=== PATIENT | male | born 1960 | race African-American/Black ===

== ENCOUNTER 2017-11-10 22:05 | Emergency (ER) | payer BC, SELFPAY ==
[2017-11-10 22:08] VITALS: BP 141/86; PULSE 68; RESP 18; TEMP 37.1; O2SAT 97; BMI 30.5
--- NOTE | 2017-11-10 22:56 | CT_ITS ---
STUDY: CT ABDOMEN AND PELVIS WITHOUT CONTRAST REASON FOR EXAM: Male, 57 years old. Lower abdominal pain with nausea and vomiting RADIATION DOSAGE (If Supplied By Facility): CTDIvol = ( 10.94 ) mGy, DLP = ( 634.41 ) mGycm TECHNIQUE: Transaxial images were obtained from the dome of the diaphragm to the symphysis pubis without oral contrast, and without intravenous contrast. Sagittal and coronal images were reconstructed. Individualized dose optimization techniques were used for this CT. COMPARISON: None. FINDINGS: Minor atelectasis within the dependent portion of the lungs. The visualized portions of the heart are within normal limits. Normal liver. Normal gallbladder and extrahepatic biliary system. Normal spleen. Normal pancreas. Normal bilateral adrenal glands. No evidence for renal obstruction or ureteral calculus. There are 2 simple cysts in left kidney and one in the right. The stomach is distended as are multiple proximal and mid small bowel loops demonstrating fluid. There is no definitive transition point demonstrated and there is gradual tapering to more normal caliber distally suggesting ileus although low-grade partial small bowel obstruction is not entirely excluded. There are diverticular changes in the sigmoid colon without evidence for acute diverticulitis.. The appendix is well-visualized and upper normal in size. There is no appreciable thickening of the turner or periappendiceal edema.. Mild atherosclerotic changes of the aorta without evidence for aneurysm. Normal inferior vena cava. Normal retroperitoneum. Normal urinary bladder. Normal abdominal wall. Lumbar spine demonstrates mild spondylosis. CT/Abdomen/Pelvis without Cont IMPRESSION: Findings which are most consistent with nonspecific ileus although low-grade distal small bowel obstruction cannot be entirely excluded. Would recommend clinical correlation and follow-up No definitive evidence for acute appendicitis. Mild diverticular disease of the sigmoid colon without evidence for acute diverticulitis Electronically Signed: Greg Aggarwal MD at 23:49 EDT , Service support ,
--- NOTE | 2017-11-10 23:02 | ED.VISSUMM ---
- ER Visit Summary Date of Service: 11/10/17 Chief Complaint: [] Abdominal pain vomiting and diarrhea for for 5 hours History of Present Illness: The patient is a 57 M [] recently flew into the [facility] this morning he indicates he woke with a nonspecific sense he did not feel well, he had dinner and then he had began having sharp stabbing lower abdominal pain with vomiting and diarrhea no fever no cough he has no history of GI elements he has a history of hypertension and hypothyroidism he is taking medications and has been stable Physical Examination: [] His vitals are within normal range she is in no distress head neck chest unremarkable the abdomen there is a vague discomfort to the lower hypogastric region. There is no rebound guarding organomegaly the inspection is unremarkable the backs unremarkable there is no right lower quadrant left lower quadrant pain he indicates the diarrhea has been watery no blood he also vomited clear stomach content upper lower extremities and back are unremarkable Test Results: [] Emergency Department Course and Treatment: [] IV fluids screening labs, the patient's labs are all unremarkable. He is eating and drinking water here he feels much better his abdomen is soft there is no rebound guarding organomegaly, the CT scan shows likely ileus nothing acute although per radiology the early subtle small bowel obstruction not completely ruled out, this would be unlikely given the fact is feeling much better he is eating and drinking here in the department he wants to go home I have explained test results to him Remembers eating a large bag of peanuts on the airplane may have precipitated all the above I have asked him to avoid that type of food stand liquids to soft foods such as yogurts banana soups and follow-up with his family doctor return for change in symptoms he will be given Bentyl as needed referral to [place] on-call physicians is out of town and return for change in symptoms he has had no vomiting or diarrhea since being in the ED Again he is feeling much better and wants to go home Treatment Plan: [] Disposition: [] Home stable Impression: [] Abdominal pain resolved vomiting and diarrhea resolved This note was generated with Neul dictation software. It may contain incorrect words, spelling, and punctuation that were not noted in review of the chart prior to signing ED Disposition - Plan for ED Patient: Chief Complaint: Abd Pain Referrals: Killian Goodrich MD [STAFF PHYSICIAN] -
[2017-11-10] MEDS: morphine 8 MG/ML Syringe IV (23:09)
[2017-11-10] MEDS: Ondansetron 4 MG/2 ML Vial IV (23:09)
[2017-11-10 23:19] LABS: Absolute Lymphocyte Count 1.17 X10^3/ul (0.83-4.51); Absolute Neutrophil Count 5.4 X10^3/uL (2.0-7.7); Basophil# 0.01 X10^3/uL; Basophil% 0.1 % (0-1); Eosinophil# 0.04 X10^3/uL; Eosinophils% 0.6 % (0-5); Hematocrit 44.4 % (40-54); Hemoglobin 14.8 g/dl (13.0-16.5); Lymphocyte # 1.17 X10^3/ul (4.0); Lymphocyte % 16.8 % (19-41); Mean Corp Hgb Conc 33.3 g/gl (32-36); Mean Corpuscular Hgb 29.1 pg (27.0-32.0); Mean Corpuscular Volume 87.4 fL (80-94); Mean Platelet Vol. 10.3 fl (6.2-12.0); Monocyte# 0.36 X10^3/uL; Monocyte% 5.2 % (0-10); Neutrophil # 5.38 X10^3/uL (2.7-7.7); Neutrophil % 77.2 % (47-70); Platelet Count 154 K/mm3 (150-450); RBC Distribution Width CV 13.6 % (11.6-14.6); RBC Distribution Width SD 43.7 fl (35.1-43.9); Red Blood Count 5.08 M/mm3 (4.6-6.2)
[2017-11-10 23:24] LABS: POSITIVE COUNT NO; POSITIVE DIFFERENTIAL NO; POSITIVE MORPHOLOGY NO
[2017-11-10 23:32] LABS: AST(SGOT) 23 U/L (15-37); Alanine Aminotransfer ALT/SGPT 31 U/L (16-61); Albumin, Serum 3.8 g/dL (3.2-5.0); Alkaline Phosphatase 65 U/L (45-117); Anion Gap 4 (5-15); BUN 16 mg/dL (7-18); BUN/Creat Ratio 15.5 RATIO (10-20); Bilirubin, Direct 0.08 mg/dL (0.00-0.30); Calcium,Total 8.6 mg/dL (8.5-10.1); Chloride 104 mmol/L (98-107); Creatinine, Serum 1.03 mg/dL (0.70-1.30); EST Glomerular Filtration Rate 79 mL/min (>60); Est Glom Filt Rate - Afr Amer 95 mL/min (>60); Estimated Creatinine Clearance 88.35 ml/min; Globulin 3.7 g/dL (2.2-4.2); Glucose 106 mg/dL (74-106); Lipase 93 U/L (73-393); Potassium 3.8 mmol/L (3.5-5.1); Protein, Total 7.5 g/dL (6.4-8.2); Sodium Level 139 mmol/L (136-145)
--- NOTE | 2017-11-11 00:49 | ED.DEP ---
ED Disposition - Plan for ED Patient: Chief Complaint: Abd Pain Instructions: ED Abdominal Pain Unkn Cause Prescriptions: Dicyclomine HCl [Bentyl] 20 mg PO TIDAC #20 cap Referrals: Killian Goodrich MD [STAFF PHYSICIAN] -
[2017-11-11 01:24] LABS: Red Blood Cells-Urine 0 SEEN /hpf (0-5)
[2017-11-11 01:30] LABS: Color, Urine Yellow (Yellow); Glucose, Dipstick Normal (Normal); Ketone-Dipstick Negative (Negative); Leukocyte Esterase-Dipstick 100 /ul (Negative); Nitrite-Dipstick Negative (Negative); Occult Blood-Urine Negative /ul (Negative); Protein-Dipstick 15 mg/dl (Negative); Urine Bilirubin Dipstick Negative (Negative); Urine Clarity Sl. Cloudy (Clear); Urine Urobilinogen 1 mg/dl (Normal)
[2017-11-11 01:37] LABS: Bacteria RARE /hpf (None Seen); Mucous, Urine RARE /hpf (<or=2+); Squamous Epithelial Cells - UA 0-5 SEEN /hpf (0-5); White Blood Cells 5-10 SEEN /hpf (0-5)
[2017-11-11 01:55] VITALS: BP 120/87; PULSE 80; RESP 18; O2SAT 96
== END 2017-11-11 01:56 | disposition home or self-care (01) ==
LOC: ED 23:44
PROVIDERS: Emergency Provider Emergency Medicine
DX: R10.30 Lower abdominal pain, unspecified (principal); R11.2 Nausea with vomiting, unspecified; R19.7 Diarrhea, unspecified; I10 Essential (primary) hypertension; E03.9 Hypothyroidism, unspecified; Z79.899 Other long term (current) drug therapy
CPT/HCPCS: 74176; 80048; 80076; 81001; 83690; 85025; 96374; 96375; 99284; J7030; A4216; J2405

== ENCOUNTER → 2022-07-07 | Outpatient (CLI) | payer MEDICAID, SELFPAY ==
[2022-07-07 16:40] LABS: Absolute Lymphocyte Count 1.99 X10^3/uL (0.83-4.51); Basophil# 0.02 X10^3/uL; Basophil% 0.4 % (0-1); Eosinophils% 1.8 % (0-5); Hematocrit 42.6 % (40-54); Hemoglobin 14.2 g/dL (13.0-16.5); Lymphocyte # 1.99 X10^3/ul (0.83-4.51); Lymphocyte % 35.3 % (19-41); Mean Corp Hgb Conc 33.3 g/dL (32-36); Mean Corpuscular Hgb 29.1 pg (27.0-32.0); Mean Corpuscular Volume 87.3 fL (80-94); Mean Platelet Vol. 10.7 fl (6.2-12.0); Monocyte# 0.55 X10^3/uL; Monocyte% 9.8 % (0-10); NRBC Flagged by Analyzer 0 % (0-5); Neutrophil # 2.97 X10^3/uL (2.7-7.7); Neutrophil % 52.5 % (47-70); Platelet Count 168 K/mm3 (150-450); RBC Distribution Width SD 44.6 fl (35.1-43.9); Red Blood Count 4.88 M/mm3 (4.6-6.2); White Blood Count 5.6 K/mm3 (4.4-11.0)
[2022-07-07 17:08] LABS: ALB/GLOB Ratio 1.1 RATIO (0.9-2.4); AST(SGOT) 18 U/L (15-37); Alanine Aminotransfer ALT/SGPT 31 U/L (16-61); Albumin, Serum 3.8 g/dL (3.2-5.0); Alkaline Phosphatase 68 U/L (45-117); Anion Gap 6 (5-15); BUN 11 mg/dL (7-18); BUN/Creat Ratio 10.6 RATIO (10-20); Chloride 103 mmol/L (98-107); Cholesterol 245 mg/dL (200); Creatinine, Serum 1.04 mg/dL (0.70-1.30); EST Glomerular Filtration Rate 77 mL/min (>60); Est Glom Filt Rate - Afr Amer 93 mL/min (>60); Globulin 3.5 g/dL (2.2-4.2); Glucose 86 mg/dL (74-106); High Density Lipoprotein 49 mg/dL; Potassium 3.8 mmol/L (3.5-5.1); Protein, Total 7.3 g/dL (6.4-8.2); Sodium Level 139 mmol/L (136-145); Triglycerides 131 mg/dL; Very Low Density Lipoprotein 26 mg/dL (5-40)
== END | disposition home or self-care (01) ==
LOC: BIMLAB 15:24
PROVIDERS: PCP Internal Medicine; Referring Provider Internal Medicine; Visit Provider Internal Medicine
DX: I10 Essential (primary) hypertension (principal); E78.2 Mixed hyperlipidemia; E03.9 Hypothyroidism, unspecified
CPT/HCPCS: 36415; 80053; 80061; 84443; 85025

== ENCOUNTER 2022-09-15 11:34 | Inpatient (IN) | payer MEDICAID, SELFPAY ==
[2022-09-15] VITALS (44 sets, daily range): BP systolic 149–190; BP diastolic 72–116; PULSE 53–67; RESP 14–20; TEMP 36.3–36.9; O2SAT 96–100; BMI 34.4; BMI 33.4
--- NOTE | 2022-09-15 11:42 | NURSING ---
STROKE TEAM CALLED
--- NOTE | 2022-09-15 11:44 | CT_ITS ---
STUDY: CT HEAD STROKE PROTOCOL W/O CONTRAST INJECTION REASON FOR EXAM: Male, 62 years old. Neuro deficit, acute, stroke suspected RADIATION DOSAGE (If Supplied By Facility): CTDIvol = ( 44.99 ) mGy, DLP = ( 846.73 ) mGycm TECHNIQUE: Transaxial CT imaging of the brain was performed without administration of intravenous contrast material. Individualized dose optimization techniques were used for this CT. COMPARISON: No relevant priors. FINDINGS: Normal soft tissue structures. Normal calvarium. Normal size ventricles and extra-axial spaces for the patient''s age. Normal white matter tracts of the cerebral hemispheres. Normal basal ganglia and thalami. Normal brainstem. Normal cerebellum. There is no intracranial hemorrhage. There are no findings of an acute ischemic infarction. Atherosclerotic calcification of the cavernous portions of the internal carotid arteries bilaterally. Mucosal thickening of the right maxillary sinus ASPECT score: 10 CT/STROKE Brain/Head without Cont IMPRESSION: Normal unenhanced CT scan of the brain. Mucosal thickening of the right maxillary sinus. N.B. : The above Results were Read Back by Hammad Lopez MD to Mey Martin and understanding confirmed on 09/15/2022 11:59:07 (ET). Electronically Signed: Hammad Lopez MD at 12:00 EST ,
--- NOTE | 2022-09-15 11:44 | EKG12_ITS ---
Test Reason : POSS STROKE Blood Pressure : / mmHG Vent. Rate : 054 BPM Atrial Rate : 054 BPM P-R Int : 162 ms QRS Dur : 084 ms QT Int : 392 ms P-R-T Axes : 000 195 143 degrees QTc Int : 371 ms Sinus bradycardia Right superior axis deviation Nonspecific ST and T wave abnormality Abnormal ECG Confirmed by BERONICA ALVAREZ, SARA ([id number]), manuscript editor GRUPO CARREON ([id number]) on 09/17/2022 1:02:53 PM Referred By: Confirmed By:SARA LOCO MD
--- NOTE | 2022-09-15 11:44 | NURSING ---
1143 STROKE ALERT CALLED
--- NOTE | 2022-09-15 11:45 | EDS_ITS ---
HPI History of Present Illness Chief Complaint: Stroke Alert Informant: patient Onset/Context/Timing Onset: Today Narrative Narrative: Patient presents to triage with complaints of bilateral leg and right arm weakne ss. He states he went to work this morning. At 7:30 AM he noted bilateral leg weakness and right arm weakness. Family at bedside states his speech sounds like he is tired but is not particularly slurred. On testing patient has right- sided weakness and stroke alert is initiated from triage. [facility] Medical History Acquired hypothyroidism Arthritis Essential hypertension Mixed hyperlipidemia Neuropathy Home Medications levothyroxine 150 mcg tablet 150 mcg PO DAILY #90 tabs 07/06/22 [Rx Last Taken Unknown] lisinopril 20 mg-hydrochlorothiazide 25 mg tablet 1 tab PO DAILY #90 tabs 07/06/22 [Rx Last Taken Unknown] meloxicam 15 mg tablet 15 mg PO DAILY #90 tabs 07/06/22 [Rx Last Taken Unknown] albuterol sulfate 90 mcg/actuation aerosol inhaler 2 puff inhalation Q4H PRN PRN Shortness Of Breath 09/15/22 [History Last Taken Unknown] amoxicillin 875 mg-potassium clavulanate 125 mg tablet 1 tab PO BID 09/15/22 [History Last Taken Unknown] aspirin 81 mg tablet,delayed release 81 mg PO DAILY 09/15/22 [History Last Taken Unknown] azithromycin 250 mg tablet 500 mg PO DAILY 09/15/22 [History Last Taken Unknown] prednisone 20 mg tablet 60 mg PO DAILY 09/15/22 [History Last Taken Unknown] Allergy/AdvReac Type Severity Reaction Status Date / Time hydromorphone HCl AdvReac Shortness Verified 09/15/22 11:35 [From Dilaudid] of breath sildenafil citrate AdvReac Other Verified 09/15/22 11:35 [From Viagra] tramadol HCl [From Ultram] AdvReac Nausea Verified 09/15/22 11:35 Family History Mother Breast cancer Surgical History H/O thyroidectomy History of total right knee replacement Social History household members: spouse housing: house current occupational status: employed current occupation: [employer] sexually active: Yes Smoking Status: Current every day smoker tobacco type: cigarettes Electronic Cigarette Use: not used quit status: considering quitting alcohol intake: current alcohol intake frequency: a few times a month details: 12pk on weekend substance use type: does not use what type of physical activity do you participate in: none seatbelt use: always do you feel safe at home: Yes ROS ROS ED Constitutional Constitutional ED: Denies chills or fever(s) Eyes Eyes: Denies change in vision or discharge from eye(s) ENT ENT ED: Denies discharge from eye(s), rhinorrhea or sore throat Cardiovascular Cardiovascular: Denies chest pain or palpitations Respiratory/Chest Respiratory/Chest: Reports cough; Denies dyspnea Gastrointestinal Gastrointestinal: Denies abdominal pain, diarrhea, nausea or vomiting Genitourinary Genitourinary ED: Denies dysuria Musculoskeletal Musculoskeletal: Denies back pain or extremity pain Integumentary Denies Abrasions or rash Neurologic Neurologic: Reports weakness; Denies headache(s) Psychiatric Psychiatric: Denies anxiety or depression Endocrine Endocrinology: Denies polydipsia or polyuria Allergic/Immunologic Allergic/Immunologic ED: Denies lip swelling or urticaria EXAM Physical Exam Const Vital Signs: 09/15/22 11:35 09/15/22 11:56 09/15/22 12:07 Temperature 97.8 F Temperature Source Temporal Pulse Rate 62 60 56 L Respiratory Rate 18 15 16 Blood Pressure 190/92 H 167/90 H 175/93 H Blood Pressure Mean 124 115 120 Blood Pressure Source Pulse Ox 100 100 100 Oxygen Delivery Method Room Air Room Air Room Air 09/15/22 12:08 09/15/22 12:22 09/15/22 12:27 Temperature Temperature Source Pulse Rate 55 L Respiratory Rate 16 Blood Pressure 159/97 H 159/97 H Blood Pressure Mean 117 Blood Pressure Source Pulse Ox 100 98 Oxygen Delivery Method Room Air Room Air 09/15/22 12:25 09/15/22 12:40 09/15/22 12:55 Temperature Temperature Source Pulse Rate 58 L 53 L 56 L Respiratory Rate 16 16 16 Blood Pressure 159/97 H 162/77 H 177/91 H Blood Pressure Mean 117 105 119 Blood Pressure Source Monitor Monitor Pulse Ox 100 100 99 Oxygen Delivery Method Room Air Room Air Room Air 09/15/22 13:10 09/15/22 11:58 09/15/22 12:01 Temperature Temperature Source Pulse Rate 58 L 60 Respiratory Rate 15 16 Blood Pressure 187/114 H 167/90 H 175/93 H Blood Pressure Mean 138 114 117 Blood Pressure Source Monitor Pulse Ox 100 100 Oxygen Delivery Method 09/15/22 12:16 09/15/22 12:20 09/15/22 12:31 Temperature Temperature Source Pulse Rate 60 56 L Respiratory Rate 18 14 Blood Pressure 178/107 H 159/97 H 174/85 H Blood Pressure Mean 127 108 112 Blood Pressure Source Pulse Ox 100 Oxygen Delivery Method 09/15/22 12:46 09/15/22 13:01 09/15/22 13:15 Temperature Temperature Source Pulse Rate 55 L 54 L 53 L Respiratory Rate 16 15 15 Blood Pressure 162/77 H 186/94 H 177/91 H Blood Pressure Mean 104 123 118 Blood Pressure Source Pulse Ox 100 100 100 Oxygen Delivery Method 09/15/22 13:25 Temperature Temperature Source Pulse Rate Respiratory Rate Blood Pressure 164/116 H Blood Pressure Mean 132 Blood Pressure Source Monitor Pulse Ox Oxygen Delivery Method Positive well nourished and well developed General Appearance ED: well developed HEENT Reports normocephalic and head/scalp atraumatic Eyes PERRL and EOMs intact bilaterally Neck supple Chest Wall inspection of chest normal and palpation of chest normal Resp normal respiratory effort and clear to auscultation bilaterally Cardio regular rate and regular rhythm GI normal to inspection, nondistended, normoactive bowel sounds Palpation: soft Extremity normal to inspection Neuro oriented x3 Neuro Narrative: See NIH stroke score. Sensorium / Orientation: alert Psych mental status grossly normal Skin no rashes or lesions noted NIHSS NIHSS Initial: 1a Level of Consciousness: 0 1b LOC Questions (Score 2 if aphasic/stupor): 0 1c LOC Commands (Only score 1st attempt): 0 2 Best Gaze (If aphasic, use reflexive mvmts.): 0 3 Visual: 0 4 Facial Palsy: 0 5 Motor Arm Right (UN = amputation/fusion): 1 5 Motor Arm Left: 0 6 Motor Leg Right: 1 6 Motor Leg Left: 0 7 Limb ataxia (Only + if out of proportion): 1 8 Sensory (Aphasia/stupor=0 or 1, coma=2): 1 9 Best Language: 0 10 Dysarthria (mute, coma=2, intubated=UN): 1 11 Extinction and Inattention (only scored if +): 0 Total Score: 5 MDM MDM MDM Narrative Medical decision making narrative: Stroke alert called at the time of my evaluation in triage. Patient sent meetly to CT for CTA noncontrast as well as CTA of the head and neck. Lab work obtained to evaluate for leukocytosis, anemia, electrolyte derangement. Lab Data Attestation: I reviewed the patient's lab results. Labs: Laboratory Results - last 24 hr 09/15/22 09/15/22 09/15/22 11:44 11:50 11:50 WBC 16.6 H RBC 5.20 Hgb 14.7 Hct 44.8 MCV 86.2 MCH 28.3 MCHC 32.8 RDW Std Deviation 42.8 RDW Coeff of Brittany 13.6 Plt Count 221 MPV 10.2 Immature Gran % (Auto) 1.000 H Neut % (Auto) 87.5 H Lymph % (Auto) 7.2 L [place] % (Auto) 4.2 Eos % (Auto) 0.0 Baso % (Auto) 0.1 Absolute Neuts (auto) 14.5 H Absolute Lymphs (auto) 1.20 Nucleated RBC % 0 PT 13.2 INR 1.0 APTT 27.4 Sodium Potassium Chloride Carbon Dioxide Anion Gap BUN Creatinine Estim Creat Clear Calc Est GFR (MDRD) Af Amer Est GFR (MDRD) Non-Af BUN/Creatinine Ratio Glucose Calcium Troponin I High Sens POC Glucose 168 H 09/15/22 11:50 WBC RBC Hgb Hct MCV MCH MCHC RDW Std Deviation RDW Coeff of Brittany Plt Count MPV Immature Gran % (Auto) Neut % (Auto) Lymph % (Auto) [place] % (Auto) Eos % (Auto) Baso % (Auto) Absolute Neuts (auto) Absolute Lymphs (auto) Nucleated RBC % PT INR APTT Sodium 137 Potassium 3.7 Chloride 100 Carbon Dioxide 28.0 Anion Gap 9 BUN 19 H Creatinine 1.05 Estim Creat Clear Calc 79.04 Est GFR (MDRD) Af Amer 92 Est GFR (MDRD) Non-Af 76 BUN/Creatinine Ratio 18.1 Glucose 147 H Calcium 9.6 Troponin I High Sens 17 POC Glucose Radiography Diagnostic Testing: Clinical Impression(s) from Imaging Studies Brain CT 09/15/22 11:44 IMPRESSION: Normal unenhanced CT scan of the brain. Mucosal thickening of the right maxillary sinus. N.B. : The above Results were Read Back by Hammad Lopez MD to Mey Martin and understanding confirmed on 09/15/2022 11:59:07 (ET). Electronically Signed: Hammad Lopez MD at 12:00 EST , ADDENDUM: 09/15/22 1207 IMPRESSION: Normal unenhanced CT scan of the brain. Mucosal thickening of the right maxillary sinus. N.B. : The above Results were Read Back by Hammad Lopez MD to Mey Martin and understanding confirmed on 09/15/2022 11:59:07 (ET). Electronically Signed: Hammad Lopez MD at 12:00 EST , Head/Neck CTA 09/15/22 11:52 IMPRESSION: Normal CTA Head and neck with contrast. N.B. : The above Results were Read Back by Jorge Luis Oreilly MD to Mey Martin MD, and understanding confirmed on 09/15/2022 12:15:12 (ET). Electronically Signed: Jorge Luis Oreilly MD at 12:17 EST , ADDENDUM: 09/15/22 1223 IMPRESSION: Normal CTA Head and neck with contrast. N.B. : The above Results were Read Back by Jorge Luis Oreilly MD to Mey Martin MD, and understanding confirmed on 09/15/2022 12:15:12 (ET). Electronically Signed: Jorge Luis Oreilly MD at 12:17 EST , Chest X-Ray 09/15/22 12:45 IMPRESSION: No interval change and no acute or active cardiopulmonary disease. Electronically Signed: Dipak Villar, at 13:02 EST , EKG Initial EKG: Attestation: I personally reviewed and interpreted this EKG as follows: Interpretation: Sinus Bradycardia (Sinus bradycardia 54 bpm. No acute ischemia.) Treatment and Re-Evaluation Narrative: CT scan of the head reveals no acute evidence of stroke. There is mucosal thickening of the right maxillary sinus. CTA of the head and neck reveals no filling defect. Chest x-ray per my interpretation reveals no focal infiltrate. Radiology interpretation is reviewed. CBC reveals a white count of 16.6 with 87% neutrophils. It is noted that the patient is currently on prednisone for pneumonia. Coags are unremarkable. Chemistry studies reveal no significant abnormalities. Troponin is normal at 17. Neurologist from [facility] in to evaluate the patient. Although the patient was at 4 hours and 45 minutes after onset of symptoms, she felt that TNK was still a possibility as it could be given quickly. After she discussed the risks and benefits with the patient and spouse at bedside they did agree. Tenecteplase was ordered and given. On repeat evaluation at this time patient is resting comfortably. I will speak with hospitalist regarding admission. Discharge Plan Triage Chief Complaint: Stroke Alert ED Provider: Mey Martin Dx/Rx/DC Orders Clinical Impression: Acute CVA (cerebrovascular accident) Prescriptions: No Action levothyroxine 150 mcg tablet 150 mcg PO DAILY Qty: 90 0RF lisinopril-hydrochlorothiazide 20-25 mg tablet 1 tab PO DAILY Qty: 90 0RF meloxicam 15 mg tablet 15 mg PO DAILY Qty: 90 0RF azithromycin 250 mg tablet 500 mg PO DAILY prednisone 20 mg tablet 60 mg PO DAILY aspirin [Aspir-81] 81 mg Tablet,Delayed Release (Dr/Ec) 81 mg PO DAILY albuterol sulfate 90 mcg/actuation HFA aerosol inhaler 2 puff INHALATION Q4H PRN PRN (Reason: Shortness Of Breath) amoxicillin-pot clavulanate 875-125 mg tablet 1 tab PO BID Primary Care Provider: Donna Martinez Referrals: Donna Martinez MD [Primary Care Provider] - Disposition Disposition: Acute Care [facility]
--- NOTE | 2022-09-15 11:50 | CM.ED ---
Social Work Note Referral Source: Stroke Alert Referral Reason: Emotional Support SW responded to stroke alert and introduced herself as well as role as [facility] Senior Technical Trainer. Patient's was agreeable to speak with SW and briefly reviewed symptoms prior to patient's arrival. Emotional support provided. Patient's states she will contact her mother at a later time and declined SW contacting anyone for her. SW remains available if other needs arise. Carolina Alejandro PROGRAM ARRANGER, [place]
--- NOTE | 2022-09-15 11:52 | CT_ITS ---
STUDY: CTA HEAD AND NECK WITH CONTRAST REASON FOR EXAM: Male, 62 years old. Mental status change, possible CVA RADIATION DOSAGE (If Supplied By Facility): CTDIvol = ( 22.56 ) mGy, DLP = ( 843.71 ) mGycm TECHNIQUE: CT angiography was performed with a multi-detector CT scanner. Data acquisition was obtained from the skull base through the vertex following intravenous administration of IV 100mL [id number]-[id number]. MIP images were reconstructed from the axial data set. Post-processing of the angiographic images was performed, with multiplanar reformation and 3D reconstruction. Individualized dose optimization techniques were used for this CT. COMPARISON: No relevant priors. FINDINGS: Normal bilateral petrous carotid arteries. Normal right cavernous carotid artery with a normal supraclinoid bifurcation. Normal left cavernous carotid artery with a normal supraclinoid bifurcation. Normal right A1 segments of the anterior cerebral artery. Normal left A1 segments of the anterior cerebral artery. Normal intact anterior communicating artery (ACOM). Normal bilateral A2 segments of the anterior cerebral arteries. Normal right M1 and M2 segments of the middle cerebral arteries, with a normal M1 bifurcation. Normal left M1 and M2 segments of the middle cerebral arteries, with a normal M1 bifurcation. Normal right posterior communicating artery (PCOM). Normal left posterior communicating artery (PCOM). Normal bilateral vertebral arteries. Normal basilar artery with a normal basilar bifurcation. The visualized bilateral superior cerebellar (SCA) arteries are normal. Normal bilateral P1, P2 and visualized P3 segments of the posterior cerebral arteries. There is no demonstrated aneurysm of the [place]. There is no demonstrated abnormality of the visualized brain. AORTIC ARCH: Normal visualized aortic arch. Normal origins of the brachiocephalic, left common carotid, and left subclavian arteries. RIGHT CAROTID ARTERIES: Normal right common carotid artery (CCA). Normal right common carotid bulb. Normal origin of the right internal carotid (ICA) artery without a hemodynamically significant stenosis. Normal visualized cervical portion of the right internal carotid artery. Normal origin of the right external carotid artery (ECA). LEFT CAROTID ARTERIES: Normal left common carotid artery (CCA). Normal left common carotid bulb. Normal origin of the left internal carotid (ICA) artery without a hemodynamically significant stenosis. Normal visualized cervical portion of the left internal carotid artery. Normal origin of the left external carotid artery (ECA). VERTEBRAL ARTERIES: Normal bilateral vertebral arteries. Soft tissue windows show no suspicious enhancing lesion, no airway narrowing or deviation. Lung apices are clear. Normal-appearing thyroid. Minimal paranasal sinusitis noted. CT/STROKE CTA Head AND Neck W/Con IMPRESSION: Normal CTA Head and neck with contrast. N.B. : The above Results were Read Back by Jorge Luis Oreilly MD to Mey Martin MD, and understanding confirmed on 09/15/2022 12:15:12 (ET). Electronically Signed: Jorge Luis Oreilly MD at 12:17 EST ,
[2022-09-15 11:56] LABS: Absolute Neutrophil Count 14.5 X10^3/uL (2.0-7.7); Basophil# 0.02 X10^3/uL; Basophil% 0.1 % (0-1); Hematocrit 44.8 % (40-54); Hemoglobin 14.7 g/dL (13.0-16.5); Lymphocyte % 7.2 % (19-41); Mean Corp Hgb Conc 32.8 g/dL (32-36); Mean Corpuscular Hgb 28.3 pg (27.0-32.0); Mean Corpuscular Volume 86.2 fL (80-94); Mean Platelet Vol. 10.2 fl (6.2-12.0); Monocyte% 4.2 % (0-10); NRBC Flagged by Analyzer 0 % (0-5); Neutrophil # 14.54 X10^3/uL (2.7-7.7); Neutrophil % 87.5 % (47-70); Platelet Count 221 K/mm3 (150-450); RBC Distribution Width CV 13.6 % (11.6-14.6); RBC Distribution Width SD 42.8 fl (35.1-43.9); White Blood Count 16.6 K/mm3 (4.4-11.0)
[2022-09-15 12:06] LABS: Bedside Glucose 168 mg/dL (74-106)
[2022-09-15 12:09] LABS: Prothrombin Time (Protime)PT. 13.2 SECONDS (11.7-14.9)
[2022-09-15 12:10] LABS: Partial Thromboplast Time 27.4 Seconds (24.1-36.2)
[2022-09-15 12:13] LABS: Anion Gap 9 (5-15); BUN 19 mg/dL (7-18); BUN/Creat Ratio 18.1 RATIO (10-20); Calcium,Total 9.6 mg/dL (8.5-10.1); Chloride 100 mmol/L (98-107); Creatinine, Serum 1.05 mg/dL (0.70-1.30); EST Glomerular Filtration Rate 76 mL/min (>60); Est Glom Filt Rate - Afr Amer 92 mL/min (>60); Estimated Creatinine Clearance 79.04 ml/min; Glucose 147 mg/dL (74-106); Potassium 3.7 mmol/L (3.5-5.1); Sodium Level 137 mmol/L (136-145); Troponin-I HS 17 pg/mL (3.0-78.0)
[2022-09-15] MEDS: Tenecteplase 25 MG in Syringe 1 EACH 3600 MG IV (12:27)
[2022-09-15] MEDS: 0.9% Normal Saline 1,000 ML 100 ML IV (12:30)
--- NOTE | 2022-09-15 12:45 | RAD_ITS ---
STUDY: X-RAY CHEST REASON FOR EXAM: Male, 62 years old. Acute stroke suspected. TECHNIQUE: Single frontal view of the chest. COMPARISON: June 2013. FINDINGS: The lungs are clear and expanded. There is no demonstrated pleural abnormality. Normal size heart. Normal mediastinum and yuly. Normal visualized pulmonary arteries. Normal visualized aortic arch and descending thoracic aorta. Normal visualized thoracic spine. Normal visualized ribs, clavicles, and shoulders. There is no demonstrated abnormality of the visualized soft tissue structures of the upper abdomen. RAD/Chest 1 View IMPRESSION: No interval change and no acute or active cardiopulmonary disease. Electronically Signed: Dipak Villar, at 13:02 EST ,
[2022-09-15] MEDS: Labetalol (Prefilled) 20 MG/4 ML IV (13:41)
--- NOTE | 2022-09-15 13:48 | NURSING ---
ICU JOCELYN CVA
--- NOTE | 2022-09-15 14:09 | NURSING ---
ICU 4
--- NOTE | 2022-09-15 14:46 | HP.PCM.HOS_ITS ---
[facility] - General General Date of Admission: 09/15/22 Date of Service: 09/15/22 Chief Complaint: Sudden onset of right-sided weakness and facial droop at 7:30 AM. HPI Narrative NIKIA LOPEZ, is a 62 M relatively healthy gentleman with history of hypertension was brought to ED for sudden onset of right-sided weakness that is started at 7:30 AM. Patient stated he woke up normal and went to work but while walking in hallway to bathroom he felt sudden wobbling and his right leg felt like froze. He feels sudden weakness, wobbly and leaning towards the right side. Stroke alert was called and patient was brought to ED. In ED, vitals shows BP 190/92, respiratory 18, heart rate 62, no hypoxia or tachypnea. NIH stroke calculated 5. CT brain shows normal unenhanced brain. [facility] telestroke consulted. [facility] neurologist recommended tenecteplase and patient was given in the ED. Patient further admitted in ICU. In ED, patient does not feel abnormal speech or language deficit or dysarthria. No loss of visual acuity or field of vision. No dysphagia. Patient never had a stroke or IN or heart attack. Denies history of diabetes mellitus. He smokes 1 pack cigarettes since age of 15. Family history: Patient denies history of IN/cardiac disease or stroke in first- degree family today. Her mother had breast cancer. [facility] Medical History Acquired hypothyroidism Arthritis Essential hypertension Mixed hyperlipidemia Neuropathy Home Medications levothyroxine 150 mcg tablet 150 mcg PO DAILY #90 tabs 07/06/22 [Rx Last Taken 09/15/22] lisinopril 20 mg-hydrochlorothiazide 25 mg tablet 1 tab PO DAILY #90 tabs 07/06/22 [Rx Last Taken 09/15/22] meloxicam 15 mg tablet 15 mg PO DAILY #90 tabs 07/06/22 [Rx Last Taken 09/15/22] albuterol sulfate 90 mcg/actuation aerosol inhaler 2 puff inhalation Q4H PRN PRN Shortness Of Breath 09/15/22 [History Last Taken 09/15/22] amoxicillin 875 mg-potassium clavulanate 125 mg tablet 1 tab PO BID 09/15/22 [History Last Taken 09/15/22] aspirin 81 mg tablet,delayed release 81 mg PO DAILY 09/15/22 [History Last Taken 09/15/22] azithromycin 250 mg tablet 250 mg PO DAILY 09/15/22 [History Last Taken 09/14/22] prednisone 20 mg tablet 60 mg PO DAILY 09/15/22 [History Last Taken 09/14/22] Allergy/AdvReac Type Severity Reaction Status Date / Time hydromorphone HCl AdvReac Shortness Verified 09/15/22 11:35 [From Dilaudid] of breath sildenafil citrate AdvReac Other Verified 09/15/22 11:35 [From Viagra] tramadol HCl [From Ultram] AdvReac Nausea Verified 09/15/22 11:35 Family History Mother Breast cancer Surgical History H/O thyroidectomy History of total right knee replacement Social History household members: spouse housing: house current occupational status: employed current occupation: [employer] sexually active: Yes Smoking Status: Current every day smoker tobacco type: cigarettes Electronic Cigarette Use: not used quit status: considering quitting alcohol intake: current alcohol intake frequency: a few times a month details: 12pk on weekend substance use type: does not use what type of physical activity do you participate in: none seatbelt use: always do you feel safe at home: Yes ROS ROS Narrative Constitutional: Reports fatigue and weakness and tiredness. No fever HEENT: Reports systems reviewed and no addt'l complaints, except as documented Respiratory/Chest: Denies chest pain, shortness of breath at rest or with exertion Gastrointestinal: Denies coffee ground emesis, hematemesis or vomiting Genitourinary: Denies burning urination or new urinary tract symptoms Musculoskeletal: Right-sided weakness as described in HPI Neurologic: No seizure. Rest as described in HPI skin: No ulcer. No rash Endocrinology: Denies diabetes mellitus history. Reports systems reviewed and no addt'l complaints, except as documented Hematologic/Lymphatic: Reports systems reviewed and no addt'l complaints, except as documented Rest 14 ROS are negative except as mentioned in HPI Vital Signs Vital Signs Vital Signs: 09/15/22 11:35 09/15/22 11:56 09/15/22 12:07 Temperature 97.8 F Temperature Source Temporal Pulse Rate 62 60 56 L Respiratory Rate 18 15 16 Blood Pressure 190/92 H 167/90 H 175/93 H Blood Pressure Mean 124 115 120 Blood Pressure Source Pulse Ox 100 100 100 Oxygen Delivery Method Room Air Room Air Room Air 09/15/22 12:08 09/15/22 12:22 09/15/22 12:27 Temperature Temperature Source Pulse Rate 55 L Respiratory Rate 16 Blood Pressure 159/97 H 159/97 H Blood Pressure Mean 117 Blood Pressure Source Pulse Ox 100 98 Oxygen Delivery Method Room Air Room Air 09/15/22 12:25 09/15/22 12:40 09/15/22 12:55 Temperature Temperature Source Pulse Rate 58 L 53 L 56 L Respiratory Rate 16 16 16 Blood Pressure 159/97 H 162/77 H 177/91 H Blood Pressure Mean 117 105 119 Blood Pressure Source Monitor Monitor Pulse Ox 100 100 99 Oxygen Delivery Method Room Air Room Air Room Air 09/15/22 13:10 09/15/22 13:40 09/15/22 11:58 Temperature Temperature Source Pulse Rate 58 L Respiratory Rate 15 Blood Pressure 187/114 H 157/79 H 167/90 H Blood Pressure Mean 138 105 114 Blood Pressure Source Monitor Monitor Pulse Ox 100 Oxygen Delivery Method 09/15/22 12:01 09/15/22 12:16 09/15/22 12:20 Temperature Temperature Source Pulse Rate 60 60 Respiratory Rate 16 18 Blood Pressure 175/93 H 178/107 H 159/97 H Blood Pressure Mean 117 127 108 Blood Pressure Source Pulse Ox 100 Oxygen Delivery Method 09/15/22 12:31 09/15/22 12:46 09/15/22 13:01 Temperature Temperature Source Pulse Rate 56 L 55 L 54 L Respiratory Rate 14 16 15 Blood Pressure 174/85 H 162/77 H 186/94 H Blood Pressure Mean 112 104 123 Blood Pressure Source Pulse Ox 100 100 100 Oxygen Delivery Method 09/15/22 13:15 09/15/22 13:25 09/15/22 13:55 Temperature Temperature Source Pulse Rate 53 L Respiratory Rate 15 Blood Pressure 177/91 H 164/116 H 179/97 H Blood Pressure Mean 118 132 124 Blood Pressure Source Monitor Monitor Pulse Ox 100 Oxygen Delivery Method 09/15/22 14:00 09/15/22 14:10 09/15/22 14:16 Temperature 97.4 F L Temperature Source Temporal Pulse Rate 56 L 55 L Respiratory Rate 16 19 H Blood Pressure 179/97 H 166/76 H 166/76 H Blood Pressure Mean 124 106 101 Blood Pressure Source Monitor Pulse Ox 99 99 Oxygen Delivery Method Room Air 09/15/22 14:25 Temperature Temperature Source Pulse Rate Respiratory Rate Blood Pressure 167/87 H Blood Pressure Mean 113 Blood Pressure Source Monitor Pulse Ox Oxygen Delivery Method Weight Weight: 253 lb 8.505 oz Body Mass Index (BMI) 34.4 Physical Exam Narrative Physical exam General: Alert, Oriented x3, Cooperative, obesity grade 1 BMI 33.5 kg/m? HEENT: Atraumatic, PERRLA, EOMI, Normocephalic Oral: Oral mucosa moist. No Gingival or Mucosal Lesions/ Ulcerations Neck: Supple, No JVD, Negative Carotid Bruits Lungs: Air entry diminished in bilateral lung bases. No crepitation/rhonchi Cardiovascular: Sinus regular Rhythm, Normal S1, Normal S2, No murmurs Abdomen: Bowel Sounds Present, Soft, Non Tender, Non-Distended : No renal angle tenderness. No suprapubic tenderness. Extremities: No edema, Capillary Refill Less than 3 Seconds Skin: No rashes, No breakdown Musculoskeletal: Right-sided weakness, muscle strength 4/5. No Tenderness to Palpation of Joints or Extremities Neurological: Right-sided facial droop. Partial upper cranial nerve VII palsy. NIH 2, 1 for RUE drift and another for RLE drift. No language deficit, dysarthria or dysphagia. Psych/Mental Status: Normal Affect, Appropriate. Results Lab / Micro Data Result Diagrams: 09/15/22 11:50 09/15/22 11:50 Labs: Laboratory Results - last 24 hr 09/15/22 11:44: POC Glucose 168 H 09/15/22 11:50: WBC 16.6 H, RBC 5.20, Hgb 14.7, Hct 44.8, MCV 86.2, MCH 28.3, MCHC 32.8, RDW Std Deviation 42.8, RDW Coeff of Brittany 13.6, Plt Count 221, MPV 10.2, Immature Gran % (Auto) 1.000 H, Neut % (Auto) 87.5 H, Lymph % (Auto) 7.2 L , [place] % (Auto) 4.2, Eos % (Auto) 0.0, Baso % (Auto) 0.1, Absolute Neuts (auto) 14.5 H, Absolute Lymphs (auto) 1.20, Nucleated RBC % 0 09/15/22 11:50: PT 13.2, INR 1.0, APTT 27.4 09/15/22 11:50: Sodium 137, Potassium 3.7, Chloride 100, Carbon Dioxide 28.0, Anion Gap 9, BUN 19 H, Creatinine 1.05, Estim Creat Clear Calc 79.04, Est GFR (MDRD) Af Amer 92, Est GFR (MDRD) Non-Af 76, BUN/Creatinine Ratio 18.1, Glucose 147 H, Calcium 9.6, Troponin I High Sens [address] 09/15/22 11:44 IMPRESSION: Normal unenhanced CT scan of the brain. Mucosal thickening of the right maxillary sinus. N.B. : The above Results were Read Back by Hammad Lopez MD to Mey Martin and understanding confirmed on 09/15/2022 11:59:07 (ET). Electronically Signed: Hammad Lopez MD at 12:00 EST , ADDENDUM: 09/15/22 1207 IMPRESSION: Normal unenhanced CT scan of the brain. Mucosal thickening of the right maxillary sinus. N.B. : The above Results were Read Back by Hammad Lopez MD to Mey Martin and understanding confirmed on 09/15/2022 11:59:07 (ET). Electronically Signed: Hammad Lopez MD at 12:00 EST , Head/Neck CTA 09/15/22 11:52 IMPRESSION: Normal CTA Head and neck with contrast. N.B. : The above Results were Read Back by Jorge Luis Oreilly MD to Mey Martin MD, and understanding confirmed on 09/15/2022 12:15:12 (ET). Electronically Signed: Jorge Luis Oreilly MD at 12:17 EST , ADDENDUM: 09/15/22 1223 IMPRESSION: Normal CTA Head and neck with contrast. N.B. : The above Results were Read Back by Jorge Luis Oreilly MD to Mey Martin MD, and understanding confirmed on 09/15/2022 12:15:12 (ET). Electronically Signed: Jorge Luis Oreilly MD at 12:17 EST , Chest X-Ray 09/15/22 12:45 IMPRESSION: No interval change and no acute or active cardiopulmonary disease. Electronically Signed: Dipak Villar, at 13:02 EST , Assessment & Plan Assessment/Plan (1) Acute CVA (cerebrovascular accident): PLAN: Plan 1. Acute left-sided ischemic stroke: Patient is being admitted to ICU after tenecteplase given in the ED. MRI brain without contrast after 24 hours of tenecteplase as per protocol. CTA head and neck reported normal. Twelve-lead EKG individually reviewed shows sinus bradycardia 54 beats minute, QTc 571 ms. Right superior axis deviation. Previous EKG of January 2014 was similar normal sinus rhythm at 62 beats minute. Stroke protocol with PT OT speech therapy evaluation and management. BP and glucose control as per stroke guidelines after thrombolytic. TSH tomorrow AM. Insurance Policy Issue Clerk consult. [facility] neuro consult after all work-up is done. 2. Hypertension: Blood pressure was high when the patient came in ED. Maintain BP less than 180/105 for 24 hours after thrombolytic. At home patient on lisinopril HCTZ. 3. Recent diagnosis of pneumonia: Patient is stated he has mild cough and diagnosed with pneumonia as an outpatient started on antibiotic Augmentin, azithromycin, prednisone and albuterol inhaler on 09/11. He started the antibiotic and the night of 09/11. Complete total 7 days of Augmentin and 1 more dose azithromycin. 4. Chronic smoker possible undiagnosed COPD: Patient recommended outpatient PFT evaluation. Patient never had PFT/spirometry. Smokes 1 pack/day. Advised quitting smoking. 5. Hyperglycemia: Glucose 168. Patient might have undiagnosed diabetes mellitus type 2. A1c ordered for tomorrow a.m. VTE prophylaxis: Patient had tPA therefore no antiplatelet or antithrombotic agent for first 24 hours. Bilateral SCDs. Living will/advanced directive/end of life care: Patient does not have living will or advanced directive. Patient is not on designated power of litigation attorney associate for health. His is next of kin. After discussion of benefits/risks procedures involved with full code, DNR CC arrest and DNR CC, the patient opted for full code. Patient does want artificial life support including intubation, tube feed, ventilator and/chest compression, central venous catheter, vasopressor and DC shock if needed Total time spent in [id number] encounter in discussion of advanced directive 16 minutes. Laboratory Results 09/15/22 11:44: POC Glucose 168 H 09/15/22 11:50: WBC 16.6 H, RBC 5.20, Hgb 14.7, Hct 44.8, MCV 86.2, MCH 28.3, MCHC 32.8, RDW Std Deviation 42.8, RDW Coeff of Brittany 13.6, Plt Count 221, MPV 10.2, Immature Gran % (Auto) 1.000 H, Neut % (Auto) 87.5 H, Lymph % (Auto) 7.2 L , [place] % (Auto) 4.2, Eos % (Auto) 0.0, Baso % (Auto) 0.1, Absolute Neuts (auto) 14.5 H, Absolute Lymphs (auto) 1.20, Nucleated RBC % 0 09/15/22 11:50: PT 13.2, INR 1.0, APTT 27.4 09/15/22 11:50: Sodium 137, Potassium 3.7, Chloride 100, Carbon Dioxide 28.0, Anion Gap 9, BUN 19 H, Creatinine 1.05, Estim Creat Clear Calc 79.04, Est GFR (MDRD) Af Amer 92, Est GFR (MDRD) Non-Af 76, BUN/Creatinine Ratio 18.1, Glucose 147 H, Calcium 9.6, Troponin I High Sens 17 Clinical Impression(s) from Imaging Studies Brain CT 09/15/22 11:44 IMPRESSION: Normal unenhanced CT scan of the brain. Mucosal thickening of the right maxillary sinus. Head/Neck CTA 09/15/22 11:52 IMPRESSION: Normal CTA Head and neck with contrast. Chest X-Ray 09/15/22 12:45 IMPRESSION: No interval change and no acute or active cardiopulmonary disease. E Charges/Coding Visit Charges Inpatient E&M: 47040 Init Hosp L3 Procedures Hospitalists Procedures: 46112 Advncd Care Plan 30 Min
--- NOTE | 2022-09-15 14:52 | ECHOD_ITS ---
Reason For Study: TIA/STROKE Procedure This was a 2D Doppler, Color Flow transthoracic echocardiogram. Exam performed portable in ICU/CCU. Left Ventricle Normal LV size. Moderate concentric left ventricular hypertrophy. Left ventricular systolic function is normal. The estimated ejection fraction is 60 %. Stage 2 diastolic dysfunction. No regional wall motion abnormalities noted. Right Ventricle Normal RV size. Normal systolic function. Atria The left and right atria are normal. Normal right atrium. Patent foramen ovale. Pulmonic Valve Normal pulmonic valve. Great Vessels Normal aortic root. The pulmonary artery is normal size. Normal inferior vena cava. Pericardium/Pleural No pericardial effusion. Medication Performed a rapid injection of agitated mix of 9 cc saline and 1cc air to assess for atrial septal defect. MMode/2D Measurements & Calculations LVIDd: 4.1 cm IVSd: 1.6 cm Ao root diam: 3.3 cm LVIDs: 2.4 cm LVPWd: 1.4 cm RVDd: 2.6 cm FS: 42.8 % LAV(MOD-sp4): 44.2 ml SV(MOD-sp4): 40.4 ml LVAd ap4: 26.3 cm2 LVLd ap4: 8.7 cm EDV(MOD-sp4): 65.2 ml EDV(sp4-el): 67.7 ml LVAs ap4: 13.9 cm2 LVLs ap4: 6.9 cm ESV(MOD-sp4): 24.8 ml ESV(sp4-el): 23.8 ml EF(MOD-sp4): 61.9 % EF(sp4-el): 64.8 % SV(sp4-el): 43.9 ml LA dimension(2D): 2.5 cm LA A4 area: 18.0 cm2 RA A4 area: 14.2 cm2 Time Measurements MV dec time: 0.11 sec Doppler Measurements & Calculations MV E max akhil: 92.3 cm/sec Lat Peak E' Akhil: 10.1 cm/sec Med Peak E' Akhil: 10.3 cm/sec MV A max akhil: 49.9 cm/sec E/E' lat: 9.2 E/E' med: 9.0 MV E/A: 1.8 MV V2 max: 103.9 cm/sec Ao V2 max: 134.8 cm/sec MV max P.3 mmHg MV dec slope: 834.0 cm/sec2 Ao max P.3 mmHg MV V2 mean: 65.1 cm/sec Ao V2 mean: 95.8 cm/sec MV mean P.9 mmHg Ao mean P.1 mmHg MV V2 VTI: 40.2 cm Ao V2 VTI: 33.8 cm AV (velocity ratio): 0.90 LV V1 max: 114.6 cm/sec MR max akhil: 513.4 cm/sec PA V2 max: 102.3 cm/sec LV V1 max P.3 mmHg MR max P.4 mmHg PA V2 mean: 73.3 cm/sec LV V1 mean P.8 mmHg LV V1 mean: 76.6 cm/sec LV V1 VTI: 30.4 cm ECHO/Echo Complete Interpretation Summary Normal LV size. Moderate concentric left ventricular hypertrophy. Left ventricular systolic function is normal. The estimated ejection fraction is 60 %. Stage 2 diastolic dysfunction. Patent foramen ovale. Ordering Physician: Enrique Saab Referring Physician: DANA GAY Performed By: Hiral Polanco RCS
[2022-09-15] MEDS: 0.9% Normal Saline 1,000 ML 75 ML IV (15:42)
[2022-09-15] MEDS: Azithromycin 250 MG Tablet 500 MG PO (16:09)
[2022-09-15 16:10] LABS: AST(SGOT) 17 U/L (15-37); Alanine Aminotransfer ALT/SGPT 39 U/L (16-61); Albumin, Serum 3.8 g/dL (3.2-5.0); Alkaline Phosphatase 74 U/L (45-117); Bilirubin, Direct 0.08 mg/dL (0.00-0.30); Protein, Total 7.8 g/dL (6.4-8.2)
[2022-09-15 16:36] LABS: Bedside Glucose 155 mg/dL (74-106)
--- NOTE | 2022-09-15 17:14 | CT_ITS ---
We are attempting to reach an attending provider to discuss findings. An addendum with communication details will be sent when the communication is complete. STUDY: CT BRAIN WITHOUT CONTRAST REASON FOR EXAM: Male, 62 years old. Severe headache and worsening right-sided weakness RADIATION DOSAGE (If Supplied By Facility): CTDIvol = ( 44.99 ) mGy, DLP = ( 829.85 ) mGycm TECHNIQUE: Transaxial CT imaging of the brain was performed without administration of intravenous contrast material. Individualized dose optimization techniques were used for this CT. COMPARISON: No relevant priors. FINDINGS: Normal soft tissue structures. Normal calvarium. Normal size ventricles and extra-axial spaces for the patient''s age. Normal white matter tracts of the cerebral hemispheres. Normal basal ganglia and thalami. Normal brainstem. Normal cerebellum. History intraventricular hemorrhage left occipital horn. There are no findings of an acute ischemic infarction. Normal visualized paranasal sinuses. CT/Brain/Head without Contrast IMPRESSION: Left intraventricular hemorrhage. No herniation or midline shift. Electronically Signed: Paul Dockery MD at 17:42 EST ,
--- NOTE | 2022-09-15 18:21 | PCM.DC.SUM ---
Providers Date of Admission: 09/15/22 Date of Discharge: 09/15/22 Primary Care Physician: Dr. Donna Martinez MD Consultations 09/15/22 12:17 Consult: Supervisor Claims / Pulmonary Medicine Routine Consulting Provider: Pulmonary Medicine majo Conrad Reason for Consult: stroke for thrombolytic administration EMERGENT Consult: Yes MD Notified: Yes Date Notified: 09/15/22 Time Notified: 15:24 Method of Notification: Text Comments:: Consult may be done in ED or ICU 09/15/22 14:52 Consult: Supervisor Claims / Pulmonary Medicine Routine Consulting Provider: Pulmonary Medicine majo Conrad Reason for Consult: acute Left Stroke s/p tenectaplase EMERGENT Consult: No Notified: Yes Date Notified: 09/15/22 Time Notified: 14:44 Method of Notification: Text Reason For Visit: LEFT ISCHEMIC STROKE Diagnosis Discharge Diagnosis (1) Acute CVA (cerebrovascular accident): Status: Acute Code(s): I63.9 - Cerebral infarction, unspecified Plan 1. Acute left-sided ischemic stroke: Patient is being admitted to ICU after tenecteplase given in the ED. MRI brain without contrast after 24 hours of tenecteplase as per protocol. CTA head and neck reported normal. Twelve-lead EKG individually reviewed shows sinus bradycardia 54 beats minute, QTc 571 ms. Right superior axis deviation. Previous EKG of January 2014 was similar normal sinus rhythm at 62 beats minute. Stroke protocol with PT OT speech therapy evaluation and management. BP and glucose control as per stroke guidelines after thrombolytic. TSH tomorrow AM. Supervisor Claims consult. SOC neuro consult after all work-up is done. 2. Hypertension: Blood pressure was high when the patient came in ED. Maintain BP less than 180/105 for 24 hours after thrombolytic. At home patient on lisinopril HCTZ. 3. Recent diagnosis of pneumonia: Patient is stated he has mild cough and diagnosed with pneumonia as an outpatient started on antibiotic Augmentin, azithromycin, prednisone and albuterol inhaler on 09/11. He started the antibiotic and the night of 09/11. Complete total 7 days of Augmentin and 1 more dose azithromycin. 4. Chronic smoker possible undiagnosed COPD: Patient recommended outpatient PFT evaluation. Patient never had PFT/spirometry. Smokes 1 pack/day. Advised quitting smoking. 5. Hyperglycemia: Glucose 168. Patient might have undiagnosed diabetes mellitus type 2. A1c ordered for tomorrow a.m. VTE prophylaxis: Patient had tPA therefore no antiplatelet or antithrombotic agent for first 24 hours. Bilateral SCDs. Living will/advanced directive/end of life care: Patient does not have living will or advanced directive. Patient is not on designated power of health care attorney for health. His is next of kin. After discussion of benefits/risks procedures involved with full code, DNR CC arrest and DNR CC, the patient opted for full code. Patient does want artificial life support including intubation, tube feed, ventilator and/chest compression, central venous catheter, vasopressor and DC shock if needed Total time spent in [id number] encounter in discussion of advanced directive 16 minutes. Laboratory Results 09/15/22 11:44: POC Glucose 168 H 09/15/22 11:50: WBC 16.6 H, RBC 5.20, Hgb 14.7, Hct 44.8, MCV 86.2, MCH 28.3, MCHC 32.8, RDW Std Deviation 42.8, RDW Coeff of Brittany 13.6, Plt Count 221, MPV 10.2, Immature Gran % (Auto) 1.000 H, Neut % (Auto) 87.5 H, Lymph % (Auto) 7.2 L, Banner % (Auto) 4.2, Eos % (Auto) 0.0, Baso % (Auto) 0.1, Absolute Neuts (auto) 14.5 H, Absolute Lymphs (auto) 1.20, Nucleated RBC % 0 09/15/22 11:50: PT 13.2, INR 1.0, APTT 27.4 09/15/22 11:50: Sodium 137, Potassium 3.7, Chloride 100, Carbon Dioxide 28.0, Anion Gap 9, BUN 19 H, Creatinine 1.05, Estim Creat Clear Calc 79.04, Est GFR (MDRD) Af Amer 92, Est GFR (MDRD) Non-Af 76, BUN/Creatinine Ratio 18.1, Glucose 147 H, Calcium 9.6, Troponin I High Sens 17 Clinical Impression(s) from Imaging Studies Brain CT 09/15/22 11:44 IMPRESSION: Normal unenhanced CT scan of the brain. Mucosal thickening of the right maxillary sinus. Head/Neck CTA 09/15/22 11:52 IMPRESSION: Normal CTA Head and neck with contrast. Chest X-Ray 09/15/22 12:45 IMPRESSION: No interval change and no acute or active cardiopulmonary disease. E Medications at Discharge Home Medications levothyroxine 150 mcg tablet 150 mcg PO DAILY #90 tabs 07/06/22 lisinopril 20 mg-hydrochlorothiazide 25 mg tablet 1 tab PO DAILY #90 tabs 07/06/22 meloxicam 15 mg tablet 15 mg PO DAILY #90 tabs 07/06/22 albuterol sulfate 90 mcg/actuation aerosol inhaler 2 puff inhalation Q4H PRN PRN Shortness Of Breath 09/15/22 amoxicillin 875 mg-potassium clavulanate 125 mg tablet 1 tab PO BID 09/15/22 aspirin 81 mg tablet,delayed release 81 mg PO DAILY 09/15/22 azithromycin 250 mg tablet 250 mg PO DAILY 09/15/22 prednisone 20 mg tablet 60 mg PO DAILY 09/15/22 Hospital Course Summary of Care Provided Hospital Course: Please see H&P for details. 62-year-old gentleman was admitted today in afternoon for left-sided ischemic stroke and met the criteria for tenecteplase. Patient had [facility] teleneurology in the ED and tenecteplase was given. Patient was admitted in ICU. About 5:30 PM patient complained of severe left-sided headache and worsening of right-sided weakness and CT head without contrast stat was ordered and patient was examined. CT head shows left intraventricular hemorrhage in the occipital horn of lateral ventricle. No midline shift or herniation. Vital signs shows BP 154/73, heart rate 63, respiratory rate 15 to 20/min. No hypoxia. Patient does not have nausea vomiting or neck pain. Immediately I called [facility] hotline even before a physical report and talked to Dr. Dana Schaefer. She agreed with the CT finding and patient is [facility] neuro ICU. She also recommended cryoprecipitate and I ordered along with type and cross, CBC, PT/INR PTT stat. Transfer papers signed. I talked to patient's near the bedside and conveyed the clinical and CT findings and my conversation with [facility] teleneurologist and cryoprecipitate transfusion. She knows that he will get transferred to [facility] I prefer air transport but due to bad weather condition may be ground transport. While waiting in ICU patient can get cryoprecipitate. Continue NIH stroke monitoring every 15 minutes. Vitals, BP and glucose monitoring as per ischemic converted hemorrhagic stroke. Final diagnosis: Left sided ischemic stroke converted to intraventricular hemorrhagic stroke after tenecteplase Patient was transferred to [facility], tertiary care facility for ischemic stroke converted hemorrhagic after tenecteplase Physical Exam Narrative Seen and examined twice after initial H&P in ED. Nurse called me that patient has severe sudden headache on the left side with worsening right-sided weakness. Immediately CT stat without contrast was ordered. I went to ICU and examined the patient. Patient complain of left frontal headache,, severe in intensity 7-8/10 intensity. On exam Slight more weakness on the right upper and lower extremity as compared to post tenecteplase examined in ED. RUE 2, RLE 2, total score 4. I accompanied the patient to ICU. His CT head individually reviewed and shows hemorrhage in the occipital horn of left lateral ventricle. CT reported normal basal ganglia and thalami, normal brainstem and normal cerebellum. No finding of herniation or midline shift. Weight / BMI Weight Weight: 246 lb 11.156 oz Body Mass Index (BMI) 33.4 ABG / Lab / Microbiology Data Result Diagrams: 09/15/22 18:10 09/15/22 11:50 Laboratory: Laboratory Results - last 24 hr 09/15/22 11:44: POC Glucose 168 H 09/15/22 11:50: WBC 16.6 H, RBC 5.20, Hgb 14.7, Hct 44.8, MCV 86.2, MCH 28.3, MCHC 32.8, RDW Std Deviation 42.8, RDW Coeff of Brittany 13.6, Plt Count 221, MPV 10.2, Immature Gran % (Auto) 1.000 H, Neut % (Auto) 87.5 H, Lymph % (Auto) 7.2 L, Banner % (Auto) 4.2, Eos % (Auto) 0.0, Baso % (Auto) 0.1, Absolute Neuts (auto) 14.5 H, Absolute Lymphs (auto) 1.20, Nucleated RBC % 0 09/15/22 11:50: PT 13.2, INR 1.0, APTT 27.4 09/15/22 11:50: Sodium 137, Potassium 3.7, Chloride 100, Carbon Dioxide 28.0, Anion Gap 9, BUN 19 H, Creatinine 1.05, Estim Creat Clear Calc 79.04, Est GFR (MDRD) Af Amer 92, Est GFR (MDRD) Non-Af 76, BUN/Creatinine Ratio 18.1, Glucose 147 H, Calcium 9.6, Troponin I High Sens 17 09/15/22 11:50: Magnesium 2.0, Total Bilirubin 0.60, Direct Bilirubin 0.08, AST 17, ALT 39, Alkaline Phosphatase 74, Total Protein 7.8, Albumin 3.8, Globulin 4.0 09/15/22 16:14: POC Glucose 155 H Radiography Diagnostic Testing: Radiology Impression Brain CT 09/15/22 11:44 IMPRESSION: Normal unenhanced CT scan of the brain. Mucosal thickening of the right maxillary sinus. N.B. : The above Results were Read Back by Hammad Lopez MD to Mey Martin and understanding confirmed on 09/15/2022 11:59:07 (ET). Electronically Signed: Hammad Lopez MD at 12:00 EST , ADDENDUM: 09/15/22 1207 IMPRESSION: Normal unenhanced CT scan of the brain. Mucosal thickening of the right maxillary sinus. N.B. : The above Results were Read Back by Hammad Lopez MD to Mey Martin and understanding confirmed on 09/15/2022 11:59:07 (ET). Electronically Signed: Hammad Lopez MD at 12:00 EST , Head/Neck CTA 09/15/22 11:52 IMPRESSION: Normal CTA Head and neck with contrast. N.B. : The above Results were Read Back by Jorge Luis Oreilly MD to Mey Martin MD, and understanding confirmed on 09/15/2022 12:15:12 (ET). Electronically Signed: Jorge Luis Oreilly MD at 12:17 EST , ADDENDUM: 09/15/22 1223 IMPRESSION: Normal CTA Head and neck with contrast. N.B. : The above Results were Read Back by Jorge Luis Oreilly MD to Mey Martin MD, and understanding confirmed on 09/15/2022 12:15:12 (ET). Electronically Signed: Jorge Luis Oreilly MD at 12:17 EST , Chest X-Ray 09/15/22 12:45 IMPRESSION: No interval change and no acute or active cardiopulmonary disease. Electronically Signed: Dipak Villar, at 13:02 EST , Echocardiogram 09/15/22 14:52 Interpretation Summary Normal LV size. Moderate concentric left ventricular hypertrophy. Left ventricular systolic function is normal. The estimated ejection fraction is 60 %. Stage 2 diastolic dysfunction. Patent foramen ovale. Ordering Physician: Enrique Saab Referring Physician: DANA MARTINEZ Performed By: Hiral Polanco RCS Brain CT 09/15/22 17:14 IMPRESSION: Left intraventricular hemorrhage. No herniation or midline shift. Electronically Signed: Paul Dockery MD at 17:42 EST , ADDENDUM: 09/15/22 1751 IMPRESSION: Left intraventricular hemorrhage. No herniation or midline shift. N.B. : The above Results were Read Back by aPul Dockery MD to Shmuel Skaggs RN, and understanding confirmed on 09/15/2022 17:44:48 (ET). Electronically Signed: Paul Dockery MD at 17:42 EST , Meaningful Use Info Meaningful Use Diagnoses (Choose all that apply): None applicable Discharge Plan Admission Admit Date/Time: 09/15/22 14:35 Attending Provider: Enrique Saab Primary Care Provider: Donna Martinez Consulting Providers: Edson Martell ; Teja Michel ; Tony Shahid ; Manish Meek ; Beverly Adan EMBALMER APPRENTICE Discharge Orders/Prescriptions Prescriptions: No Action levothyroxine 150 mcg tablet 150 mcg PO DAILY Qty: 90 0RF lisinopril-hydrochlorothiazide 20-25 mg tablet 1 tab PO DAILY Qty: 90 0RF meloxicam 15 mg tablet 15 mg PO DAILY Qty: 90 0RF azithromycin 250 mg tablet 250 mg PO DAILY prednisone 20 mg tablet 60 mg PO DAILY aspirin [Aspir-81] 81 mg Tablet,Delayed Release (Dr/Ec) 81 mg PO DAILY albuterol sulfate 90 mcg/actuation HFA aerosol inhaler 2 puff INHALATION Q4H PRN PRN (Reason: Shortness Of Breath) amoxicillin-pot clavulanate 875-125 mg tablet 1 tab PO BID Referrals / Follow Up: Donna Martinez MD [Primary Care Provider] - Disposition Disposition (needs filled in before D/C Order can be placed): Acute Care Hospital Charges/Coding Visit Charges Inpatient E&M: 56204 Disch Hosp >30min
[2022-09-15 18:38] LABS: Hematocrit 42.2 % (40-54); Hemoglobin 14.1 g/dL (13.0-16.5); Mean Corp Hgb Conc 33.4 g/dL (32-36); Mean Corpuscular Hgb 28.5 pg (27.0-32.0); Mean Corpuscular Volume 85.4 fL (80-94); Mean Platelet Vol. 10.5 fl (6.2-12.0); Platelet Count 214 K/mm3 (150-450); RBC Distribution Width CV 13.5 % (11.6-14.6); RBC Distribution Width SD 42.1 fl (35.1-43.9); Red Blood Count 4.94 M/mm3 (4.6-6.2); White Blood Count 14.4 K/mm3 (4.4-11.0)
[2022-09-15 18:43] LABS: International Normalized Ratio 1.1; Prothrombin Time (Protime)PT. 13.6 SECONDS (11.7-14.9)
[2022-09-15 18:44] LABS: Partial Thromboplast Time 27.8 Seconds (24.1-36.2)
[2022-09-15] MEDS: 0.9% Saline Lock 10 ML Syringe IV ×2 (19:02)
== END 2022-09-15 19:40 | disposition short-term general hospital (02) | DRG 64 ==
LOC: ED 14:06 → ICU 09-16 10:31
PROVIDERS: Admitting Provider Internal Medicine; Emergency Provider Emergency Medicine; PCP Internal Medicine; Visit Provider Internal Medicine
DX: I63.9 Cerebral infarction, unspecified (principal); J18.9 Pneumonia, unspecified organism; J44.9 Chronic obstructive pulmonary disease, unspecified; E11.65 Type 2 diabetes mellitus with hyperglycemia; E03.9 Hypothyroidism, unspecified; I10 Essential (primary) hypertension; E78.2 Mixed hyperlipidemia; Z87.891 Personal history of nicotine dependence; Z66 Do not resuscitate; Z51.5 Encounter for palliative care; R29.702 NIHSS score 2; Z79.82 Long term (current) use of aspirin
CPT/HCPCS: 70450; 70496; 70498; 71045; 80048; 80076; 82962; 83735; 84484; 85025; 85027; 85610; 85730; 86850; 86900; 86901; 86965; 93005; 93306; 99285; J3101; J7030; P9012; Q9967; A4216

== ENCOUNTER → 2022-12-21 | Outpatient (CLI) | payer MEDICAID, SELFPAY ==
[2022-12-21 16:57] LABS: Absolute Lymphocyte Count 1.68 X10^3/uL (0.83-4.51); Absolute Neutrophil Count 2.2 X10^3/uL (2.0-7.7); Basophil# 0.01 X10^3/uL; Basophil% 0.2 % (0-1); Eosinophil# 0.11 X10^3/uL; Eosinophils% 2.4 % (0-5); Hematocrit 44.7 % (40-54); Hemoglobin 14.8 g/dL (13.0-16.5); Lymphocyte # 1.68 X10^3/ul (0.83-4.51); Lymphocyte % 36.8 % (19-41); Mean Corp Hgb Conc 33.1 g/dL (32-36); Mean Corpuscular Hgb 29.1 pg (27.0-32.0); Mean Corpuscular Volume 87.8 fL (80-94); Mean Platelet Vol. 10.6 fl (6.2-12.0); Monocyte# 0.51 X10^3/uL; Monocyte% 11.2 % (0-10); NRBC Flagged by Analyzer 0 % (0-5); Neutrophil # 2.24 X10^3/uL (2.7-7.7); Neutrophil % 49.2 % (47-70); Platelet Count 173 K/mm3 (150-450); RBC Distribution Width CV 13.7 % (11.6-14.6); RBC Distribution Width SD 44.3 fl (35.1-43.9); Red Blood Count 5.09 M/mm3 (4.6-6.2); White Blood Count 4.6 K/mm3 (4.4-11.0)
[2022-12-21 17:18] LABS: Hemoglobin A1c 6.1 % (3.8-5.6)
[2022-12-21 17:30] LABS: Vitamin D,25 Hydroxy 25.8 ng/mL
[2022-12-21 17:41] LABS: ALB/GLOB Ratio 1.1 RATIO (0.9-2.4); AST(SGOT) 23 U/L (15-37); Alanine Aminotransfer ALT/SGPT 39 U/L (16-61); Albumin, Serum 3.7 g/dL (3.2-5.0); Alkaline Phosphatase 90 U/L (45-117); Anion Gap 4 (5-15); BUN 14 mg/dL (7-18); BUN/Creat Ratio 12.4 RATIO (10-20); Calcium,Total 8.8 mg/dL (8.5-10.1); Chloride 106 mmol/L (98-107); Creatinine, Serum 1.13 mg/dL (0.70-1.30); EST Glomerular Filtration Rate 70 mL/min (>60); Est Glom Filt Rate - Afr Amer 84 mL/min (>60); Globulin 3.4 g/dL (2.2-4.2); Glucose 90 mg/dL (74-106); Potassium 4.1 mmol/L (3.5-5.1); Protein, Total 7.1 g/dL (6.4-8.2); Sodium Level 140 mmol/L (136-145)
[2022-12-22 13:04] LABS: Cholesterol 159 mg/dL (200); High Density Lipoprotein 44 mg/dL; Triglycerides 140 mg/dL; Very Low Density Lipoprotein 28 mg/dL (5-40)
== END | disposition home or self-care (01) ==
LOC: BIMLAB 16:10
PROVIDERS: PCP Internal Medicine; Referring Provider Internal Medicine; Visit Provider Internal Medicine
DX: I10 Essential (primary) hypertension (principal); E03.9 Hypothyroidism, unspecified; F32.A Depression, unspecified; R73.03 Prediabetes; E78.2 Mixed hyperlipidemia
CPT/HCPCS: 36415; 80053; 80061; 82306; 83036; 84443; 85025

== ENCOUNTER → 2023-05-11 | Outpatient (CLI) | payer MEDICAID, SELFPAY ==
--- NOTE | 2023-05-11 14:16 | NEURO ---
NCS and/or EMG Patient Report Ordering Doctor: Donna Martinez DATE OF SERVICE: 05/11/23 Iban presents for electrodiagnostic testing of the right upper limb. He reports numbness and tingling in the right hand. Electrodiagnostic findings: Right median motor nerve demonstrates prolonged distal latency with normal amplitude and reduced conduction velocity. Right ulnar motor response is within normal limits, including conduction across the elbow. Borderline prolonged right median and right ulnar F?waves. Prolonged right median sensory latency at the wrist. Normal right ulnar and radial sensory responses. Needle EMG testing was performed the right upper limb. All muscles tested showed no evidence of denervation with normal motor unit action potentials. Electrodiagnostic impression: This is an abnormal study of the right upper limb. 1. Electrodiagnostic findings suggestive of right-sided median mononeuropathy. This is consistent with a mild right carpal tunnel syndrome. Multi Select Codes Neurology Neurology Interp Codes: 76467-05 Musc test done w/n test comp (interp) and 90115-39 Nrv cndj tst 5-6 studies (interp)
== END | disposition home or self-care (01) ==
PROVIDERS: PCP Internal Medicine; Referring Provider Internal Medicine; Visit Provider Internal Medicine
DX: R20.0 Anesthesia of skin (principal); R20.2 Paresthesia of skin
CPT/HCPCS: 95886; 95909

== ENCOUNTER → 2023-05-19 | Outpatient (CLI) | payer MEDICAID, SELFPAY ==
[2023-05-19 17:16] LABS: Vitamin B12 269 pg/mL (211-911)
[2023-05-19 17:19] LABS: Thyroid Stim Hormone (TSH) 1.67 uIU/mL (0.358-3.74)
== END | disposition home or self-care (01) ==
LOC: BIMLAB 16:02
PROVIDERS: PCP Internal Medicine; Referring Provider Internal Medicine; Visit Provider Internal Medicine
DX: E55.9 Vitamin D deficiency, unspecified (principal); R20.2 Paresthesia of skin; R20.0 Anesthesia of skin
CPT/HCPCS: 36415; 82306; 82607; 84443

== ENCOUNTER → 2023-11-02 | Outpatient (CLI) | payer SELFPAY ==
[2023-11-02 11:39] LABS: Anion Gap 3 (5-15); BUN 15 mg/dL (7-18); BUN/Creat Ratio 13.6 RATIO (10-20); Calcium,Total 9.6 mg/dL (8.5-10.1); Chloride 105 mmol/L (98-107); EST Glomerular Filtration Rate 72 mL/min (>60); Est Glom Filt Rate - Afr Amer 87 mL/min (>60); Glucose 95 mg/dL (74-106); Potassium 3.6 mmol/L (3.5-5.1); Sodium Level 139 mmol/L (136-145)
== END | disposition home or self-care (01) ==
PROVIDERS: PCP Internal Medicine; Referring Provider Nurse Practitioner; Visit Provider Nurse Practitioner
DX: I10 Essential (primary) hypertension (principal)
CPT/HCPCS: 36415; 80048

== ENCOUNTER → 2023-11-15 | Outpatient (CLI) | payer SELFPAY ==
[2023-11-15 09:27] LABS: Cholesterol 175 mg/dL (200); High Density Lipoprotein 36 mg/dL; Triglycerides 135 mg/dL; Very Low Density Lipoprotein 27 mg/dL (5-40)
== END | disposition home or self-care (01) ==
LOC: LAB 07:48
PROVIDERS: PCP Internal Medicine; Referring Provider Nurse Practitioner; Visit Provider Nurse Practitioner
DX: I10 Essential (primary) hypertension (principal)
CPT/HCPCS: 36415; 80061

== ENCOUNTER 2024-02-06 11:31 | Outpatient (CLI) | payer MEDICARE, SELFPAY ==
[2024-02-06 15:32] LABS: Hemoglobin 14.6 g/dL (13.0-16.5); Mean Corp Hgb Conc 33.2 g/dL (32-36); Mean Corpuscular Hgb 28.4 pg (27.0-32.0); Mean Corpuscular Volume 85.6 fL (80-94); Mean Platelet Vol. 10.6 fl (6.2-12.0); Platelet Count 184 K/mm3 (150-450); RBC Distribution Width CV 13.5 % (11.6-14.6); RBC Distribution Width SD 42.6 fl (35.1-43.9); Red Blood Count 5.14 M/mm3 (4.6-6.2); White Blood Count 4.8 K/mm3 (4.4-11.0)
[2024-02-06 15:50] LABS: AST(SGOT) 24 U/L (15-37); Alanine Aminotransfer ALT/SGPT 50 U/L (16-61); Cholesterol 134 mg/dL (200); High Density Lipoprotein 34 mg/dL; Thyroid Stim Hormone (TSH) 9.99 uIU/mL (0.358-3.74); Triglycerides 180 mg/dL; Very Low Density Lipoprotein 36 mg/dL (5-40)
[2024-02-06 19:48] LABS: Hemoglobin A1c 6.6 % (3.8-5.6)
[2024-02-07 11:14] LABS: Vitamin D,25 Hydroxy 33.3 ng/mL
== END 2024-02-06 23:59 | disposition home or self-care (01) ==
LOC: BIMLAB 11:34
PROVIDERS: PCP Internal Medicine; Referring Provider Nurse Practitioner; Visit Provider Nurse Practitioner
DX: Z12.5 Encounter for screening for malignant neoplasm of prostate (principal); I10 Essential (primary) hypertension; E03.9 Hypothyroidism, unspecified; E78.2 Mixed hyperlipidemia; E55.9 Vitamin D deficiency, unspecified; R73.03 Prediabetes
CPT/HCPCS: 36415; 80061; 82306; 83036; 84153; 84443; 84450; 84460; 85027; G0103

== ENCOUNTER → 2024-04-23 | Outpatient (CLI) | payer MEDICARE, SELFPAY | END | disposition home or self-care (01) | LOC: BIMLAB 15:44 | PROVIDERS: PCP Internal Medicine; Referring Provider Nurse Practitioner; Visit Provider Nurse Practitioner | DX: E03.9 Hypothyroidism, unspecified (principal) | CPT/HCPCS: 36415; 84443 ==